=== PATIENT | male | born 1975 | race African-American/Black ===

== ENCOUNTER 2022-09-10 11:04 | Inpatient (IN) | payer OTHER ==
[2022-09-10 11:35] VITALS: BMI 22.9
[2022-09-10] MEDS ORDERED: NALOXONE HCL (KLOXXADO) 8 MG SPRAY NS PRN (13:10)
[2022-09-10] MEDS ORDERED: NICOTINE POLACRILEX 4 MG GUM BUC PRN (13:10)
[2022-09-10] MEDS ORDERED: BENZOCAINE/MENTHOL (CHLORASEPTIC ) LOZENGE MM PRN (13:10)
[2022-09-10] MEDS ORDERED: IBUPROFEN 400 MG TABLET (FP) PO PRN (13:10)
[2022-09-10] MEDS ORDERED: IBUPROFEN 600 MG TABLET (FP) PO PRN (13:10)
[2022-09-10] MEDS ORDERED: DICYCLOMINE HCL 10 MG CAPSULE PO PRN (13:10)
[2022-09-10] MEDS ORDERED: ACETAMINOPHEN 325 MG TABLET (FP) PO PRN ×2 (13:10)
[2022-09-10] MEDS ORDERED: MAGNESIUM HYDROX 2400MG/30ML ORAL SUSPENSION 30 ML CUP PO PRN (13:10)
[2022-09-10] MEDS ORDERED: ONDANSETRON *ODT* 4 MG TABLET SL PRN (13:10)
[2022-09-10] MEDS ORDERED: POLYETHYLENE GLYCOL (HEALTHYLAX) 3350 17 GM PACKET PO PRN (13:10)
[2022-09-10] MEDS ORDERED: MAG HYDROX/AL HYDROX/SIMETH 30 ML UNIT-DOSE CUP PO PRN (13:10)
[2022-09-10] MEDS ORDERED: LOPERAMIDE HCL 2 MG CAPSULE PO PRN (13:10)
[2022-09-10] MEDS ORDERED: BISMUTH SUBSALICYLATE 262 MG/15 ML BTL PO PRN (13:10)
[2022-09-10] MEDS: PRENATAL VITAMINS W/ FOLIC ACID TABLET (FP) PO SCH (15:17)
[2022-09-10 16:18] LABS: HEMATOCRIT 37.6 % (35.4-49); HEMOGLOBIN 12.6 GM/dL (11.7-16.9); MCH 30.7 pg (25.7-33.7); MCHC 33.4 g/dl (32.0-35.9); MEAN PLT VOLUME 8.3 fl (7.5-11.1); PLATELET COUNT 256 10^3/uL (134-434); RBC 4.09 M/mm3 (4.00-5.60); RDW 14.8 % (11.9-15.9)
[2022-09-10 16:23] LABS: ALBUMIN 3.1 g/dl (3.4-5.0); BLOOD UREA NITROGEN 27.5 mg/dL (7-18); CALCIUM 8.8 mg/dL (8.5-10.1)
[2022-09-10 16:27] LABS: CREATININE 1.2 mg/dL (0.55-1.3)
[2022-09-10 16:28] LABS: BILIRUBIN,TOTAL 0.9 mg/dL (0.2-1); TOT PROT 7.3 g/dl (6.4-8.2)
[2022-09-10] MEDS: hydrOXYzine PAMOATE 25 MG CAPSULE (FP) PO PRN (17:47)
[2022-09-10] MEDS: NICOTINE 10 MG CARTRIDGE (INHALER) IH PRN (17:55)
[2022-09-10] MEDS: MELATONIN 5 MG TABLETS PO SCH (22:53)
[2022-09-10] MEDS: THIAMINE HCL 100 MG TABLET (FP) PO SCH (22:53)
[2022-09-11] MEDS ORDERED: diazePAM 5 MG TABLET PO PRN (09:47)
[2022-09-11] MEDS: diazePAM 5 MG TABLET PO SCH ×3 (10:33→22:39)
[2022-09-11] MEDS: PRENATAL VITAMINS W/ FOLIC ACID TABLET (FP) PO SCH (10:34)
[2022-09-11] MEDS: METHOCARBAMOL 500 MG TABLET PO PRN (22:37)
[2022-09-11] MEDS: MELATONIN 5 MG TABLETS PO SCH (22:38)
[2022-09-11] MEDS: THIAMINE HCL 100 MG TABLET (FP) PO SCH (22:38)
[2022-09-12] MEDS: diazePAM 5 MG TABLET PO SCH ×4 (05:53→22:18)
[2022-09-12] MEDS: PRENATAL VITAMINS W/ FOLIC ACID TABLET (FP) PO SCH (10:44)
[2022-09-12] MEDS: METHOCARBAMOL 500 MG TABLET PO PRN (17:30)
[2022-09-12] MEDS: THIAMINE HCL 100 MG TABLET (FP) PO SCH (22:17)
[2022-09-12] MEDS: MELATONIN 5 MG TABLETS PO SCH (22:17)
[2022-09-12] MEDS: hydrOXYzine PAMOATE 25 MG CAPSULE (FP) PO PRN (22:18)
[2022-09-13] MEDS: diazePAM 5 MG TABLET PO SCH ×3 (05:47→22:30)
[2022-09-13] MEDS: PRENATAL VITAMINS W/ FOLIC ACID TABLET (FP) PO SCH (10:19)
[2022-09-13] MEDS: NICOTINE 10 MG CARTRIDGE (INHALER) IH PRN (10:19)
[2022-09-13] MEDS: THIAMINE HCL 100 MG TABLET (FP) PO SCH (22:29)
[2022-09-13] MEDS: MELATONIN 5 MG TABLETS PO SCH (22:29)
[2022-09-14] MEDS ORDERED: diazePAM 5 MG TABLET PO SCH (06:00)
[2022-09-14 09:27] VITALS: BP 114/69; PULSE 84; RESP 18; TEMP 97.8
[2022-09-14] MEDS: PRENATAL VITAMINS W/ FOLIC ACID TABLET (FP) PO SCH (10:16)
[2022-09-15] MEDS ORDERED: diazePAM 5 MG TABLET PO ONE (06:00)
== END 2022-09-14 11:57 | disposition other institution (70) | DRG 775 ==
LOC: YASAS 11:04 → Y3N 13:21 → UNDOADMIN 13:21
PROVIDERS: ADMIT Allergy & Immunology; ATTEND Surgery
PROC: HZ2ZZZZ Detoxification Services for Substance Abuse Treatment (ICD-10-PCS; principal; 2022-09-10)
DX: F10.230 Alcohol dependence with withdrawal, uncomplicated (principal); F12.20 Cannabis dependence, uncomplicated; F17.210 Nicotine dependence, cigarettes, uncomplicated; F43.9 Reaction to severe stress, unspecified; E78.5 Hyperlipidemia, unspecified; R76.11 Nonspecific reaction to tuberculin skin test without active tuberculosis; R78.9 Finding of unspecified substance, not normally found in blood; R74.01 Elevation of levels of liver transaminase levels
CPT/HCPCS: 36415; 71046-TC-FY; 80053; 85027; 86780; 87811; 93005; 93010; C9803-CS; U0003; U0005